=== PATIENT | female | born 1995 | race Caucasian/White ===

== ENCOUNTER 2018-12-06 21:35 | Emergency (ER) | payer OTHER ==
[2018-12-06 21:44] VITALS: BP 140/91; PULSE 102; TEMP 98.3; BMI 21.6
--- NOTE | 2018-12-06 22:07 | PDOC ---
History of Present Illness <Matt Padilla - Last Filed: 12/06/18 22:08> - General History Source: Patient, Parent(s) Exam Limitations: No Limitations - History of Present Illness Initial Comments: 12/06/18 22:08 The patient is a 23 year old female with no past medical history here today for evaluation of laceration. The patient reports that she cut her left palm between 12:30-1:00 pm today using a small knife. She reports that she has been bleeding intermittently since then. Patient believes she received a tetanus shot recently but is not completely sure. Allergies: penicillins, mold, dust <Michael Morataya - Last Filed: 12/06/18 22:10> - General Chief Complaint: Laceration Stated Complaint: LACERATION Time Seen by Provider: 12/06/18 22:06 Past History - Past Medical History COPD: No Disorders: Yes (PCOS) Seizures: Yes (At 4 yrs old) Other medical history: Migraines - Suicide/Smoking/Psychosocial Hx Smoking History: Never smoked Have you smoked in the past 12 months: No Information on smoking cessation initiated: No Hx Alcohol Use: No Drug/Substance Use Hx: No <Matt Padilla - Last Filed: 12/06/18 22:08> <Michael Morataya - Last Filed: 12/06/18 22:10> - Past Medical History Allergies/Adverse Reactions: Allergies Allergy/AdvReac Type Severity Reaction Status Date / Time Penicillins Allergy Severe Hives Verified 12/06/18 21:37 mold Allergy Intermediate Verified 12/06/18 21:37 dust Allergy Intermediate Uncoded 12/06/18 21:37 Home Medications: Ambulatory Orders Magnesium 0 mg PO BID 12/06/18 Spironolactone [Aldactone] 100 mg PO DAILY 12/06/18 Review of Systems - Review of Systems Able to Perform ROS?: Yes Comments:: 12/06/18 22:09 A complete review of 10 out of 10 review of systems is taken and is negative apart from what is previously mentioned below and in the HPI. <Michael Morataya - Last Filed: 12/06/18 22:10> *Physical Exam - Vital Signs Last Vital Signs Temp Pulse Resp BP Pulse Ox 98.3 F 102 H 20 140/91 100 12/06/18 21:38 12/06/18 21:38 12/06/18 21:38 12/06/18 21:38 12/06/18 21:38 <Matt Padilla - Last Filed: 12/06/18 22:08> - Vital Signs Last Vital Signs Temp Pulse Resp BP Pulse Ox 98.3 F 102 H 20 140/91 100 12/06/18 21:38 12/06/18 21:38 12/06/18 21:38 12/06/18 21:38 12/06/18 21:38 - Physical Exam Comments: 12/06/18 22:09 Vitals: Triage vital signs reviewed General Appearance: No acute distress, well nourished, well developed Head: Atraumatic Skin: +1 cm laceration to palmar surface of left hand. Warm and dry, no rashes , no rash, no petechiae Psych: Normal mood, normal affect <Michael Morataya - Last Filed: 12/06/18 22:10> Moderate Sedation - Procedure Monitoring Vital Signs: Procedure Monitoring Vital Signs Temperature 98.3 F 12/06/18 21:38 Pulse Rate 102 H 12/06/18 21:38 Respiratory Rate 20 12/06/18 21:38 Blood Pressure 140/91 12/06/18 21:38 O2 Sat by Pulse Oximetry (%) 100 12/06/18 21:38 <Matt Padilla - Last Filed: 12/06/18 22:08> - Procedure Monitoring Vital Signs: Procedure Monitoring Vital Signs Temperature 98.3 F 12/06/18 21:38 Pulse Rate 102 H 12/06/18 21:38 Respiratory Rate 20 12/06/18 21:38 Blood Pressure 140/91 12/06/18 21:38 O2 Sat by Pulse Oximetry (%) 100 12/06/18 21:38 <Michael Morataya - Last Filed: 12/06/18 22:10> Procedures - Laceration/Wound Repair Left Hand Wound Length: to 2.5 cm Wound Explored: clean Wound's Depth, Shape: superficial Irrigated w/ Saline: Yes Betadine Prep: Yes Anesthesia: 2% Lidocaine Wound Repaired With: Sutures Suture Size/Type: 5:0 Number of Sutures: 2 Layer Closure: No Sterile Dressing Applied: Yes <Michael Morataya - Last Filed: 12/06/18 22:10> Medical Decision Making - Medical Decision Making 12/06/18 22:09 The patient is a 23 year old female with no past medical history here today for evaluation of laceration. <Michael Morataya - Last Filed: 12/06/18 22:10> *DC/Admit/Observation/Transfer - Discharge Dispostion Decision to Admit order: No <Matt Padilla - Last Filed: 12/06/18 22:08> - Attestations Scribe Attestion: 12/06/18 22:09 Documentation prepared by EDUARDO Mcnair, acting as medical billing coder for Matt Padilla MD. <Michael Morataya - Last Filed: 12/06/18 22:10> Diagnosis at time of Disposition: Laceration - Discharge Dispostion Disposition: HOME Condition at time of disposition: Good - Patient Instructions Printed Discharge Instructions: DI for Laceration Repair Additional Instructions: Keep dry and covered for the next 36 hours then apply bacitracin twice a day keep covered while showering avoid getting it wet as much as possible if it does simply pat dry do not disrupt sutures. Return to ED in 7 days for suture removal or immediately for any signs of infection such as redness swelling pus bleeding streaking red lines fever or for any concerns.
== END 2018-12-06 22:11 | disposition home or self-care (01) ==
LOC: FER 21:35
PROC: 0HQGXZZ Repair Left Hand Skin, External Approach (ICD-10-PCS; principal; 2018-12-06)
DX: S61.412A Laceration without foreign body of left hand, initial encounter (principal); W26.0XXA Contact with knife, initial encounter; Y93.89 Activity, other specified; Y92.89 Other specified places as the place of occurrence of the external cause
CPT/HCPCS: 99281-25